=== PATIENT | female | born 1960 | race Caucasian/White ===

== ENCOUNTER 2020-12-29 14:03 | Outpatient (CLI) | payer MEDICARE, SELFPAY | END 2020-12-29 14:04 | disposition home or self-care (01) | LOC: ANHCOVIDVC 14:03 | DX: Z23 Encounter for immunization (principal) | CPT/HCPCS: 0001A; 91300 ==

== ENCOUNTER 2021-01-19 13:47 | Outpatient (CLI) | payer MEDICARE, SELFPAY | END 2021-01-19 13:48 | disposition home or self-care (01) | LOC: ANHCOVIDVC 13:47 | DX: Z23 Encounter for immunization (principal) | CPT/HCPCS: 0002A; 91300 ==